=== PATIENT | female | born 1965 | race Caucasian/White ===

== ENCOUNTER 2016-06-27 08:02 | Day surgery (SDC) | payer BC ==
[2016-06-23 12:49] LABS: BASOPHILS 0.6 %; BASOPHILS ABSOLUTE 0.05 10/3/uL (0.0-0.16); EOSINOPHILS 2.9 %; EOSINOPHILS ABSOLUTE 0.24 10/3/uL (0.0-0.53); HEMOGLOBIN 13.2 g/dL (12.0-16.0); IMMATURE GRANULOCYTES 0.2 %; IMMATURE GRANULOCYTES ABSOLUTE 0.02 10/3/uL (0.0-0.11); LYMPHOCYTES 27.9 %; MANUAL DIFF NO %; MEAN CORPUS HGB CONC 33.8 g/dL (32.0-36.0); MEAN CORPUSCULAR VOLUME 85.7 fL (80-100); MEAN PLATELET VOLUME 10.8 fL (9.2-13.0); MONOCYTES 5.3 %; MONOCYTES ABSOLUTE 0.44 10/3/uL (0.21-1.20); NEUTROPHILS 63.1 %; PLATELET COUNT 261 10/3/uL (150-400); RBC DISTRIBUTION WIDTH 14.4 % (12.0-16.0); RED CELL COUNT 4.55 10/6/uL (4.0-5.6); WHITE BLOOD CELLS 8.3 10/3/uL (4.5-10.5)
[2016-06-23 13:08] LABS: A/G RATIO 1.1 (0.7-1.9); ALBUMIN 3.7 G/DL (3.5-5.0); CALCIUM, SERUM 9.5 MG/DL (8.5-10.4); CHLORIDE, SERUM 103 MMOL/L (96-112); CO2 (CARBON DIOXIDE) 30 MMOL/L (24-34); CREATININE 0.84 MG/DL (0.55-1.02); GFR AFRICAN AMERICAN 95 ML/MIN (>=60); GFR NON AFRICAN AMERICAN 82 ML/MIN (>=60); GLOBULIN 3.4 G/DL (2.5-4.1); POTASSIUM, SERUM 3.1 MMOL/L (3.5-5.3); SGOT(AST) 36 U/L (5-40); SGPT(ALT) 44 U/L (5-65); SODIUM, SERUM 145 MMOL/L (135-148); TOTAL BILIRUBIN 0.6 MG/DL (0-1.2); TOTAL PROTEIN 7.1 G/DL (6.0-8.5)
[2016-06-23 13:10] LABS: ALKALINE PHOSPHATASE 95 U/L (45-117); BUN (BLOOD UREA NITROGEN) 18 MG/DL (6-23); GLUCOSE, SERUM 132 MG/DL (60-99)
--- NOTE | ~2016-06-27 | OP ---
Record Of Operation [facility] [address] [place]. [address] NAME: BASIL SANCHEZ : 69 STATUS : [facility] UNIT#: [id number] AGE: 51 ADM/REG DATE : 06/27/16 MR#: [id number] REPORT SERV DATE: 06/28/16 DICTATED BY: MORGAN KHOURY JR. DATE: 06/27/16 REPORT STATUS : Draft TRANSCRIBED BY: MODCynthia DATE: 06/27/16 DATE OF PROCEDURE: 06/27/2016 SURGEON: Morgan Khoury M.D. IMPLEMENTATION ADVISOR: Eden Mackenzie. PROCEDURE: Ultrasound localization, wire placement right breast, right breast partial mastectomy, sentinel lymphatic mapping and axilla lymph node biopsy right axilla. PREOPERATIVE DIAGNOSIS: Carcinoma of the right breast. POSTOPERATIVE DIAGNOSIS: Carcinoma of the right breast. ANESTHESIA: General. INDICATIONS: The patient had developed a breast abnormality on the right for which a core biopsy demonstrated an invasive carcinoma. She received neoadjuvant chemotherapy. She had stable disease. There was no evidence of any metastatic disease. The patient elected the breast conserving form of treatment and partial mastectomy along with axillary node biopsy is indicated. FINDINGS: The patient had preoperative lymphoscintigraphy, which showed mapping to a faint on the right axilla. Intraoperative ultrasound did localize the abnormality in the quadrant, and a wire was placed through the lesion. During the lumpectomy, the mass was excised. Grossly negative margins were seen. It was somewhat close to the medial superficial area, and this was reexcised and grossly normal. Final characterization is deferred to permanent section. In the axilla, a single axillary sentinel lymph node was identified with a 10 second count of 2455 and a background of 57. This was not grossly involved with tumor. DESCRIPTION OF PROCEDURE: With adequate general anesthesia, the patient was placed in supine position. The right breast was imaged with ultrasound and the abnormality at the 2 o'clock position identified. The skin was prepped with ChloraPrep and a Kopan's hook wire needle assembly was placed through the lesion. The needle was removed, and wire was left in place. The breast and axilla were then re-prepped and draped sterilely. A curvilinear incision was made at the upper inner quadrant of the right breast. The incision deepened down through the subcutaneous tissues. The wire was encountered and then the tissue surrounding the wire was excised sharply from surrounding tissues. This was submitted to pathology for open orientation. Additional margin was re-excised as noted. The outlines of the cavity were then marked with clips two posteriorly, one superiorly, inferiorly, medially, and laterally. This wound was closed with subcutaneous 3-0 Vicryl and subcuticular Monocryl. In the axilla, curvilinear incision made as well. This was deepened down through this soft tissues. The deep axilla was entered and with gamma probe detection, the node with Record Of Operation [address] [address] NAME: BASIL SANCHEZ : 69 STATUS : [facility] PAT#: [id number] AGE: 51 ADM/REG DATE : 06/27/16 MR#: [id number] REPORT SERV DATE: 06/28/16 DICTATED BY: MORGAN KHOURY JR. DATE: 06/27/16 REPORT STATUS : Draft TRANSCRIBED BY: STEPHANIE DATE: 06/27/16 significant gamma probe activity was identified. This was dissected free of surrounding tissues. This was at level 2. This was submitted to pathology as after counts had been obtained. Bleeders controlled with electrocautery. There was no significant residual gamma activity. This wound was then closed with deep 3-0 Vicryl and subcuticular Monocryl. Sterile dressings were applied. The patient left the operating room in satisfactory condition. ESTIMATED BLOOD LOSS FOR THE PROCEDURE: 30 mL. CAROLEE/STEPHANIE Morgan Khoury Jr., M.D. / [id number] CC: Susan Roy Jr.
[~2016-06-27 08:02] MED LIST: ADVIL PO; ALBUTEROL5; APRES10B PO; ASAB PO; BACDS PO; C1 PO; CLEOCIN300 MG PO; CLOTRIMAZOLE1 % VA; COREG12 PO; COREG25 PO; COUMADIN10 MG PO; COUMADIN4 MG PO; COZAAR100 MG PO; DEX4 PO; ERYTHROMYCIN O3.5 G1 OPH; FLOMAX4 PO; GLIPIZIDE PO; GLUCOPHAGE1000 MG PO; GLUCPH PO; HERCEPTIN IV; HYDROCHLOROT25 MG PO; INSNOVR; INSNOVR SC; KCL20UDL PO; KLOR-CON M2020 MEQ PO; LANTUS SC; LANTUS SQ; LEVAQUIN750 MG PO; LEVEMIR SC; LEVOTHYROXIN25 MCG PO; LIPITOR10 PO; LOTE40 PO; LOTREL1 CA1 PO; LOVENOX40 SC; MAGOX4 PO; NEUR300; NEUR300 PO; NEXIUM40 MG PO; NORCO1 TA1 PO; NORCO1 TA2 PO; NORV10 PO; NOVOLOG SC; NOVOPEN SC; PERCOCET1 TA4 PO; PR25; PRIN20 PO; PYR200 PO; SPIRO25 PO; SYN.025B PO; T PO; TRANDAT300; TRANDAT300 PO; VALIUM10 MG PO; VICODINTAB PO; VITC500 PO; ZINC220C PO
[2016-06-27 11:08] LABS: INTERNATIONAL NORMAL RATI 1.1 UNITS (-)
[2016-06-27 11:09] LABS: PROTIME (NOT ORD) 13.6 SEC (12.0-14.5)
== END 2016-06-27 18:28 | disposition home or self-care (01) ==
LOC: SDC 08:02
PROVIDERS: Specialist
PROC: 07B50ZX Excision of Right Axillary Lymphatic, Open Approach, Diagnostic (ICD-10-PCS; 2016-06-27)
PROC: 0HBT0ZZ Excision of Right Breast, Open Approach (ICD-10-PCS; principal; 2016-06-27 11:30)
DX: C50.211 Malignant neoplasm of upper-inner quadrant of right female breast (principal); Z17.0 Estrogen receptor positive status [ER+]; I10 Essential (primary) hypertension; M54.2 Cervicalgia; M25.562 Pain in left knee; M25.561 Pain in right knee; K21.9 Gastro-esophageal reflux disease without esophagitis; F41.0 Panic disorder [episodic paroxysmal anxiety]; F41.9 Anxiety disorder, unspecified; F32.9 Major depressive disorder, single episode, unspecified; F40.240 Claustrophobia; E87.6 Hypokalemia; E83.42 Hypomagnesemia; E11.40 Type 2 diabetes mellitus with diabetic neuropathy, unspecified; E03.9 Hypothyroidism, unspecified; E78.00 Pure hypercholesterolemia, unspecified; E66.01 Morbid (severe) obesity due to excess calories; Z68.42 Body mass index [BMI] 45.0-49.9, adult; Z86.711 Personal history of pulmonary embolism; Z88.1 Allergy status to other antibiotic agents; Z91.013 Allergy to seafood; Z91.048 Other nonmedicinal substance allergy status; Z91.038 Other insect allergy status; Z79.4 Long term (current) use of insulin; Z79.01 Long term (current) use of anticoagulants; Z79.899 Other long term (current) drug therapy; Z90.89 Acquired absence of other organs; Z93.0 Tracheostomy status; Z87.01 Personal history of pneumonia (recurrent); Z90.49 Acquired absence of other specified parts of digestive tract; Z98.51 Tubal ligation status; Z87.442 Personal history of urinary calculi; Z98.890 Other specified postprocedural states
CPT/HCPCS: 78195; 80053; 82962; 84703; 85025; 85610; 88305; 88307; 88342; 93005; A9270-GY; A9541; J0690; J1885; J2250; J2405; J2710; J3010